=== PATIENT | male | born 1945 | race African-American/Black ===

== ENCOUNTER 2020-05-18 12:27 | Emergency (ER) | payer OTHER ==
[~2020-05-18] VITALS: Ht 175.3 cm; Wt 67.2 kg
[2020-05-18] MEDS ORDERED: SIME80TA14 PO (13:06)
--- NOTE | 2020-05-18 13:06 | ED.ADGEN ---
Past Medical History Past Medical History: GERD Additional Past Medical Histor: enlarged prostate Past Surgical History: Other Additional Past Surgical Histo: (R) jaw Smoking Status: Former Smoker Alcohol Use: None General Adult EDM: Chief Complaint: ABDOMINAL PAIN HPI: HPI: Patient is a 75 year old AA male who presents emergency department with concerns of increased flatulence. Patient reports he has had problems with this ongoing for the last year but has been significantly worse over the last 2 weeks. He reports that 2 weeks ago he was seen by his primary care doctor who prescribed him omeprazole. Patient states that he is not having acid reflux problems the gas does not cause him to belch and the medication has not stopped his coagulation. He states he is just passing gas all the time, when he eats, and even when he smells things it gives him gas. He denies any abdominal pain, nausea, vomiting, diarrhea, constipation, fever, cough, chest pain, palpitations, body aches, fatigue, dysuria, or hematuria. He currently denies any pain. Review of Systems: Review of Systems: Complete ROS is negative unless otherwise noted in HPI. Allergies: Allergies: Allergies Coded Allergies Type Severity Reaction Last Updated Verified No Known Drug Allergies 05/18/20 No Physical Exam: PE: See Above Constitutional: Well developed, well nourished, no acute distress, non-toxic appearance. [] HENT: Normocephalic, atraumatic, bilateral external ears normal, nose normal. [] Eyes: PERRLA, EOMI, conjunctiva normal, no discharge. [] Neck: Normal range of motion, no stridor. [] Cardiovascular:Heart rate regular rhythm, no murmur [] Lungs & Thorax: Respirations even and unlabored, no retractions, no respiratory distress Abdomen: Bowel sounds normal, soft, no tenderness, no masses, no pulsatile masses. [] Skin: Warm, dry, no erythema, no rash. [] Extremities: No cyanosis, no clubbing, ROM intact, no edema. [] Neurologic: Alert and oriented X 3, normal motor function, normal sensory function, no focal deficits noted. [] Psychologic: Affect normal, judgement normal, mood normal. [] Current Patient Data: Vital Signs: Vital Signs Date Time Temp Pulse Resp B/P (MAP) Pulse Ox O2 Delivery O2 Flow Rate FiO2 05/18/20 12:33 98.4 71 18 144/73 (96) 100 Room Air 98.4 EKG: EKG: [] Heart Score: Risk Factors: Risk Factors: DM, Current or recent (<one month) smoker, HTN, HLP, family history of CAD, obesity. Risk Scores: Score 0 - 3: 2.5% MACE over next 6 weeks - Discharge Home Score 4 - 6: 20.3% MACE over next 6 weeks - Admit for Clinical Observation Score 7 - 10: 72.7% MACE over next 6 weeks - Early Invasive Strategies Radiology/Procedures: Radiology/Procedures: [] Course & Med Decision Making: Course & Med Decision Making Pertinent Labs and Imaging studies reviewed. (See chart for details) [] Dragon Disclaimer: Dragon Disclaimer: This electronic medical record was generated, in whole or in part, using a voice recognition dictation system. Departure Departure Impression: Primary Impression: Flatulence Disposition: 01 DC HOME SELF CARE/HOMELESS Condition: STABLE Referrals: AGUEDA RYAN MD Patient Instructions: Flatulence, [id number]-[id number] Additional Instructions: Fill the prescription and use it as directed. Follow the instructions provided. Recommend you follow-up with a manager assessment, Dr. Ryan's information has been provided. Return to the ER if your symptoms worsen or fever develops. Scripts Simethicone (SIMETHICONE) 80 Mg Tab.chew 1 TAB PO TID PRN for GAS / BLOATING for 10 Days, #30 TAB 0 Refills Prov: JULIANA IRWIN APRN 05/18/20 Attending Signature Attending Signature I have reviewed the PA/OSTEOLOGIST's note and plan of care. I was available for consultation as needed during the patient's visit in the emergency department. I agree with the clinical impression, plan, and disposition. JULIANA IRWIN APRN May 18, 2020 13:06 AGUEDA BRYSON DO May 18, 2020 14:36
[2020-05-18 14:04] VITALS: BP 162/72
[2020-06-01] MEDS ORDERED: OMEP20TA8 PO (07:41)
[2020-06-01] MEDS ORDERED: TAMS0.4C97 PO (07:41)
== END 2020-05-18 14:04 | disposition home or self-care (01) ==
LOC: ER 12:27
DX: R14.3 Flatulence (principal); K21.9 Gastro-esophageal reflux disease without esophagitis; Z87.891 Personal history of nicotine dependence
CPT/HCPCS: 99284

== ENCOUNTER 2020-05-25 01:04 | Emergency (ER) | payer OTHER ==
[~2020-05-25] VITALS: Ht 175.3 cm; Wt 65.0 kg
[~2020-05-25 01:04] MED LIST: SIME80TA14 PO
--- NOTE | 2020-05-25 01:24 | PHYS DOC ---
Past Medical History Past Medical History: No Pertinent History, GERD Additional Past Medical Histor: enlarged prostate Past Surgical History: Other Additional Past Surgical Histo: (R) jaw Smoking Status: Former Smoker Alcohol Use: None General Adult EDM: Chief Complaint: DIARRHEA HPI: HPI: 75-year-old male who reports no significant past medical history, who presents for evaluation of ongoing sensation of "gas" and abdominal distension. Seen in ED 05/18 for same, Rx simethicone - patient reports no efficacy. No prior abd surgeries. Was seen again at [facility], undergoing CTAP, unknown results. Patient states he was scheduled for endoscopy at [facility] next week. He states that over the last couple days, he's developed diarrhea, stating that everything he eats or drinks "goes right through me". Review of Systems: Review of Systems: Gen: No fever, chills. CV: No CP, palpitations. Resp. No SOB, cough. GI: No abd pain, N/V. Reports bloating, gas, diarrhea. : No dysuria, hematuria. Neuro: No RODRIGUEZ, dizziness. Remainder of systems reviewed and negative unless otherwise specified. Heart Score: Risk Factors: Risk Factors: DM, Current or recent (<one month) smoker, HTN, HLP, family history of CAD, obesity. Risk Scores: Score 0 - 3: 2.5% MACE over next 6 weeks - Discharge Home Score 4 - 6: 20.3% MACE over next 6 weeks - Admit for Clinical Observation Score 7 - 10: 72.7% MACE over next 6 weeks - Early Invasive Strategies Current Medications: Current Medications Medications (Trade) Dose Ordered Sig/Billie Start Time Stop Time Status Last Admin Dose Admin Sodium Chloride 1,000 ml @ 1,000 mls/hr Q1H 05/25/20 01:30 05/25/20 02:29 UNV Allergies: Allergies: Allergies Coded Allergies Type Severity Reaction Last Updated Verified No Known Drug Allergies 05/18/20 No Physical Exam: PE: Gen: NAD. Head: NC/AT. Eyes: No scleral icterus. No conjunctival injection. ENT: MMM. Posterior OP clear. Neck: Supple. CV: RRR. Peripheral pulses intact. Resp: CTAB. Abd: Soft. NT. ND. MSK: No peripheral cyanosis. No edema. Neuro: Awake and alert. Skin. Warm. Dry. Psych: Anxious. Current Patient Data: Labs: Laboratory Tests Test 05/25/20 01:25 05/25/20 01:51 White Blood Count 2.8 x10^3/uL (4.0-11.0) Red Blood Count 3.85 x10^6/uL (4.30-5.70) Hemoglobin 9.5 g/dL (13.0-17.5) Hematocrit 30.1 % (39.0-53.0) Mean Corpuscular Volume 78 fL (79-100) Mean Corpuscular Hemoglobin 25 pg (25-35) Mean Corpuscular Hemoglobin Concent 31 g/dL (31-37) Red Cell Distribution Width 19.4 % (11.5-14.5) Platelet Count 225 x10^3/uL (140-400) Neutrophils (%) (Auto) 45 % (31-73) Lymphocytes (%) (Auto) 23 % (24-48) Monocytes (%) (Auto) 21 % (0-9) Eosinophils (%) (Auto) 7 % (0-3) Basophils (%) (Auto) 4 % (0-3) Neutrophils # (Auto) 1.3 x10^3/uL (1.8-7.7) Lymphocytes # (Auto) 0.6 x10^3/uL (1.0-4.8) Monocytes # (Auto) 0.6 x10^3/uL (0.0-1.1) Eosinophils # (Auto) 0.2 x10^3/uL (0.0-0.7) Basophils # (Auto) 0.1 x10^3/uL (0.0-0.2) Sodium Level 139 mmol/L (136-145) Chloride Level 103 mmol/L (98-107) Carbon Dioxide Level 29 mmol/L (21-32) Anion Gap 7 (6-14) Blood Urea Nitrogen 13 mg/dL (8-26) Estimated GFR (Cockcroft-Gault) 29.3 BUN/Creatinine Ratio 5 (6-20) Glucose Level 90 mg/dL (70-99) Calcium Level 9.2 mg/dL (8.5-10.1) Total Bilirubin 0.8 mg/dL (0.2-1.0) Aspartate Amino Transf (AST/SGOT) 28 U/L (15-37) Alkaline Phosphatase 65 U/L (46-116) Total Protein 7.1 g/dL (6.4-8.2) Albumin 3.4 g/dL (3.4-5.0) Albumin/Globulin Ratio 0.9 (1.0-1.7) Lipase 273 U/L (73-393) Urine Collection Type Unknown Urine Color Yellow Urine Clarity Clear Urine pH 8.5 (<5.0-8.0) Urine Specific Monroe 1.010 (1.000-1.030) Urine Protein Negative mg/dL (NEG-TRACE) Urine Glucose (UA) Negative mg/dL (NEG) Urine Ketones (Stick) Negative mg/dL (NEG) Urine Blood Negative (NEG) Urine Nitrite Negative (NEG) Urine Bilirubin Negative (NEG) Urine Urobilinogen Dipstick 0.2 mg/dL (0.2 mg/dL) Urine Leukocyte Esterase Negative (NEG) Urine RBC 0 /HPF (0-2) Urine WBC 1-4 /HPF (0-4) Urine Squamous Epithelial Cells Few /LPF Urine Bacteria 0 /HPF (0-FEW) Urine Hyaline Casts Few /HPF Urine Mucus Slight /LPF EKG: EKG: [] Radiology/Procedures: Radiology/Procedures: EXAM: 2 VIEW ABDOMEN WITH ONE VIEW CHEST. HISTORY: Nausea and diarrhea. COMPARISON: None. FINDINGS: A frontal view of the chest and supine/upright views of the abdomen are obtained. There are no confluent infiltrates. There is no pneumothorax or pleural effusion. The heart is not enlarged. There is no pneumoperitoneum. There is mild gaseous distention of a few small bowel loops in the left upper quadrant. There are no significant air-fluid levels. There is gas distally. IMPRESSION: 1. No confluent infiltrates. 2. Mild gaseous distention of small bowel loops in the left upper quadrant may be a normal appearance or reflect focal ileus. No evidence of obstruction. Electronically signed by: Shayy Solis MD (05/25/2020 2:09 AM) [facility] Course & Med Decision Making: Course & Med Decision Making Pertinent Labs and Imaging studies reviewed. (See chart for details) In summary, 75M p/w ongoing flatulence/gas, with some recent loose BMs. Benign exam, no abd TTP or distension. States he underwent recent CTAP at [facility], and is scheduled for outpatient endoscopy/colonscopy next week. Patient is extremely fixated on his apparent flatulence, even stating that the IVF he is receiving is "making it worse". Will obtain AXR and basic labs. 0238: Labs largely unrevealing. Spoke with [facility] after records request form faxed, with CTAP on 05/19 showing no acute findings, no obstruction. Remains well appearing and nontoxic. Will DC home with outpatient F/U for his scope with GI. Continuation of simethicone. Return precautions given. Linwood Disclaimer: Linwood Disclaimer: This electronic medical record was generated, in whole or in part, using a voice recognition dictation system. Departure Departure Impression: Primary Impression: Flatulence Additional Impression: Loose bowel movement Disposition: DC HOME SELF CARE/HOMELESS Condition: STABLE Referrals: UNKNOWN PCP NAME (PCP) Scripts Simethicone (SIMETHICONE) 80 Mg Tab.chew 1 TAB PO TID for gas for 6 Days, #20 TAB 0 Refills Prov: JN MATHEW DO 05/25/20 JN MATHEW DO May 25, 2020 01:24
[2020-05-25] MEDS ORDERED: IV NORMAL SALINE 1000ML BAG 1,000 ML IV SCH (01:30)
[2020-05-25 01:39] LABS: BASO # 0.1 x10^3/uL (0.0-0.2); BASO % 4 % (0-3); EOS # 0.2 x10^3/uL (0.0-0.7); EOS % 7 % (0-3); HEMATOCRIT 30.1 % (39.0-53.0); HEMOGLOBIN 9.5 g/dL (13.0-17.5); LYMPH # 0.6 x10^3/uL (1.0-4.8); LYMPH % 23 % (24-48); MEAN CORPUSCULAR HEMOGLOBIN 25 pg (25-35); MEAN CORPUSCULAR HGB CONC 31 g/dL (31-37); MEAN CORPUSCULAR VOLUME 78 fL (79-100); MONO # 0.6 x10^3/uL (0.0-1.1); MONO % 21 % (0-9); NEUT # 1.3 x10^3/uL (1.8-7.7); NEUT % 45 % (31-73); PLATELET COUNT 225 x10^3/uL (140-400); RED BLOOD COUNT 3.85 x10^6/uL (4.30-5.70); RED CELL DISTRIBUTION WIDTH 19.4 % (11.5-14.5); WHITE BLOOD COUNT 2.8 x10^3/uL (4.0-11.0)
[2020-05-25 01:48] LABS: CALCIUM 9.2 mg/dL (8.5-10.1); CREATININE 2.6 mg/dL (0.7-1.3); GFR 29.3; POTASSIUM 4.5 mmol/L (3.5-5.1)
[2020-05-25 01:57] LABS: ALBUMIN 3.4 g/dL (3.4-5.0); ALBUMIN/GLOBULIN RATIO 0.9 (1.0-1.7); MAGNESIUM 2.4 mg/dL (1.8-2.4); TOTAL BILIRUBIN 0.8 mg/dL (0.2-1.0); TOTAL PROTEIN 7.1 g/dL (6.4-8.2)
[2020-05-25 02:01] LABS: BILIRUBIN,URINE NEGATIVE (NEG); CLARITY,URINE CLEAR; COLOR,URINE YELLOW; NITRITE,URINE NEGATIVE (NEG); PH,URINE 8.5 (<5.0-8.0); PROTEIN,URINE NEGATIVE (NEG-TRACE); UROBILINOGEN,URINE 0.2 mg/dL (0.2 mg/dL)
[2020-05-25 02:09] LABS: BACTERIA,URINE 0 /HPF (0-FEW); RBC,URINE 0 /HPF (0-2)
[2020-05-25 02:10] LABS: HYALINE CASTS, URINE FEW /HPF
--- NOTE | 2020-05-25 02:11 | RAD ---
EXAM: 2 VIEW ABDOMEN WITH ONE VIEW CHEST. HISTORY: Nausea and diarrhea. COMPARISON: None. FINDINGS: A frontal view of the chest and supine/upright views of the abdomen are obtained. There are no confluent infiltrates. There is no pneumothorax or pleural effusion. The heart is not en larged. There is no pneumoperitoneum. There is mild gaseous distention of a few small bowel loops in the left upper quadrant. There are no significant air-fluid levels. There is gas distally. IMPRESSION: 1. No confluent infiltrates. 2. Mild gaseous distention of small bowel loops in the left upper quadrant may be a normal appearance or reflect focal ileus. No evidence of obstruction. Electronically signed by: Shayy Solis MD (05/25/2020 2:09 AM) [facility]
[2020-05-25] MEDS ORDERED: SIME80TA14 PO (02:41)
[2020-05-25 03:12] VITALS: BP 158/79
[2020-05-25 04:26] LABS: % BASOS 1 % (0-3); % EOS 6 % (0-5); % LYMPHS 53 % (24-48); % MONOS 11 % (0-10); % SEGS 29 % (35-66); PLT ESTIMATE ADEQUATE (ADEQUATE)
[2020-05-25 04:27] LABS: ANISOCYTOSIS SLIGHT; HYPOCHROMIA SLIGHT; POLYCHROMASIA SLIGHT
== END 2020-05-25 03:29 | disposition home or self-care (01) ==
LOC: ER 01:04
DX: R14.3 Flatulence (principal); K63.89 Other specified diseases of intestine; K21.9 Gastro-esophageal reflux disease without esophagitis; Z87.891 Personal history of nicotine dependence
CPT/HCPCS: 36415; 74022; 80053; 81001; 83690; 83735; 85007; 85025; 96360; 99285; J7030

== ENCOUNTER → 2020-05-30 | Outpatient (CLI) | payer OTHER ==
[2020-05-25 03:12] VITALS: BP 158/79
[~2020-05-30] MED LIST changes: +OMEP20TA8 PO; +TAMS0.4C97 PO
== END ==
LOC: LAB 07:59
PROVIDERS: ATTEND Internal Medicine Gastroenterology
DX: Z01.812 Encounter for preprocedural laboratory examination (principal); D64.9 Anemia, unspecified; Z20.822 Contact with and (suspected) exposure to COVID-19
CPT/HCPCS: U0003

== ENCOUNTER → 2020-06-01 | Day surgery (SDC) | payer OTHER ==
[~2020-06-01] MED LIST changes: +IV RINGERS,LACTATED 1000ML 1,000 ML IV SCH; +LIDOCAINE 2% PF 5 ML VIAL. ONE; +PROPOFOL 10 MG/ML (20ML) VIAL. IV ONE
[2020-06-01 09:17] VITALS: BP 110/54
--- NOTE | 2020-06-05 09:08 | PATHOLOGY ---
[facility] Accession Number: [id number] . 01 Material submitted: . sigmoid colon - SIGMOID POLYP . 02 Diagnosis: Colon biopsy, sigmoid polyp: - Tubulovillous adenoma, predominantly tubular. (JPM:lithopone charger; 06/04/2020) R 06/04/2020 1657 Local . 02 Comment: There is no high-grade dysplasia or evidence of malignancy. (JPM:lithopone charger; 06/04/2020) . 02 Electronically signed: . Norman Varela MD, Pathologist NPI- [id number] . 01 Gross description: . The specimen is received in formalin, labeled "Kg Coates, sigmoid polyp". Received is a segment of light brown tissue measuring 1.0 cm in maximum dimensions. The surgical margin is inked and the segment is bisected. The specimen is submitted entirely in cassette A1. ([facility]; 06/03/2020) QA/[facility] 06/03/2020 1752 Local . 02 Pathologist provided ICD-10: D12.5 . 02 CPT . 471648 Specimen Comment: A courtesy copy of this report has been sent to [phone] Specimen Comment: Report sent to Performed at: 01 [facility] [address], [place], [place] [id number] MD Jean Raygoza MD Phone: [phone] Performed at: 02 [facility] [address] [place], [place] [id number] MD Norman Varela MD Phone: [phone]
== END | disposition home or self-care (01) ==
LOC: ENDOS 07:26
PROVIDERS: ATTEND Internal Medicine Gastroenterology
DX: D50.9 Iron deficiency anemia, unspecified (principal); R19.5 Other fecal abnormalities; K64.0 First degree hemorrhoids; K63.5 Polyp of colon; K63.89 Other specified diseases of intestine; Z79.899 Other long term (current) drug therapy; Z98.890 Other specified postprocedural states
CPT/HCPCS: 43235; 45384; J2704